=== PATIENT | male | born 1980 | race Caucasian/White ===

== ENCOUNTER 2017-03-12 07:22 | Emergency (ER) | payer BC, OTHER ==
[2017-03-12] MEDS ORDERED: Sodium Chloride 0.9% 1,000 ML ONE ×2 (07:28→08:22)
[2017-03-12] MEDS ORDERED: LORazepam 2 MG/ML Syringe ONE (07:47)
[2017-03-12 08:06] LABS: CHLORIDE,CL 103 mEq/L (98-106); SODIUM,NA 141 mEq/L (136-145)
--- NOTE | 2017-03-12 08:23 | EDM.PDOC ---
ED HPI GENERAL MEDICAL PROBLEM - General Chief Complaint: General Stated Complaint: unresponsive Time Seen by Provider: 03/12/17 07:22 Source of Information: Reports: EMS, Police History Limitations: Reports: Altered Mental Status - History of Present Illness INITIAL COMMENTS - FREE TEXT/NARRATIVE: History and physical: History of present illness: [patient is brought to the emergency room by local EMS. He was found in a vehicle parked outside of a local hotel and was unresponsive. unresponsive to painful stimuli on scene. Vyvanse 70mg bottle found in the vehicle. [address] Amor at [facility] and filled on 03/11/17. There are #24 tablets in the pill bottle at time of his presentation to ER. Patient was evaluated at [facility] on 03/03/17 for an unresponsive episode. UDS was negative. He was transferred out via flight. ] ] Review of Systems: As per history of present illness and below otherwise all systems reviewed and negative. Past medical history: As per history of present illness and as reviewed below otherwise noncontributory. Surgical history: As per history of present illness and is reviewed below other avalos noncontributory. Social history: No reported history of drug or alcohol abuse. Family history: As per history of present illness and is reviewed below otherwise noncontributory. Physical exam: General: Obtunded. well developed, well nourished male is unresponsive to painful stimuli. Gag reflex present. HEENT: Atraumatic, normocephalic. No evidence of trauma or injury. Lungs: Clear to auscultation. Heart: S1-S2, regular rate and rhythm. Abdomen: Soft, nondistended, nontender. Pelvis: Stable, nontender. Genitourinary: Deferred. Rectal: Deferred. Extremities: No track thomson noted to forearms, neck, or between fingers or toes. atraumatic. Diagnostics: [CBC, CMP, UA, UDS, PT/INR, troponin ] Impression: [altered mental status r/o polysubstance overdose] Plan: [Patient is transported to [facility] by [facility] flight team, with Dr. Gregory in ER accepting. RSI completed by flight team. Unable to provide risks and benefits of transfer to patient due to condition/ unresponsiveness. No family available. ] Definitive disposition and diagnosis is appropriate pending reevaluation and review of above. Social & Family History - Tobacco Use Smoking Status *Q: Unknown Ever Smoked ED ROS GENERAL - Review of Systems Review Of Systems: ROS reveals no pertinent complaints other than HPI. ED EXAM, GENERAL - Physical Exam Exam: See Below Course - Orders/Labs/Meds Labs: Laboratory Tests 03/12/17 03/12/17 03/12/17 Range/Units 07:45 07:45 07:45 WBC 13.3 H (5.0-10.0) 10^3/uL RBC 4.83 (4.50-6.00) 10^6/uL Hgb 14.7 (14.0-18.0) g/dL Hct 42.6 (40.0-54.0) % MCV 88.2 (82.0-94.0) fL MCH 30.4 (27.0-32.0) pg MCHC 34.5 (33.0-38.0) g/dL RDW Coeff of Jhoan 12.0 (11.0-15.0) % Plt Count 294 (150-400) 10^3/uL Neut % (Auto) 81.9 (35-85) % Lymph % (Auto) 8.4 L (10-55) % Cherry % (Auto) 8.7 (0-16) % Eos % (Auto) 0.8 (0-5) % Baso % (Auto) 0.2 (0-3) % Neut # (Auto) 10.86 H (1.80-7.00) 10^3/uL Lymph # (Auto) 1.11 (1.00-4.80) 10^3/uL Cherry # (Auto) 1.16 H (0.00-0.80) 10^3/uL Eos # (Auto) 0.11 (0.00-0.45) 10^3/uL Baso # (Auto) 0.02 10^3/uL PT (9.7-12.3) SEC INR (0.92-1.18) Sodium 141 (136-145) mEq/L Potassium 3.1 L (3.5-5.0) mEq/L Chloride 103 (98-106) mEq/L Carbon Dioxide 32 (21-32) mmol/L BUN 12 (7-18) mg/dL Creatinine 1.1 (0.7-1.3) mg/dL Est Cr Clr Drug Dosing TNP Estimated GFR (MDRD) > 60 (>=60) mL/min Glucose 112 H (75-99) mg/dL Calcium 8.4 (8.4-10.1) mg/dL Total Bilirubin 0.4 (0.0-1.0) mg/dL AST 14 L (15-37) U/L ALT 27 (12-78) U/L Alkaline Phosphatase 62 (46-116) U/L Troponin I < 0.017 (0.00-0.06) ng/mL Total Protein 6.8 (6.4-8.2) g/dL Albumin 3.5 (3.4-5.0) g/dL Urine Color (YELLOW) Urine Appearance (CLEAR) Urine pH (4.5-8.0) Ur Specific Briggs (1.003-1.020) Urine Protein (NEGATIVE) mg/dL Urine Glucose (UA) (NEGATIVE) mg/dL Urine Ketones (NEGATIVE) mg/dL Urine Occult Blood (NEGATIVE) Urine Nitrite (NEGATIVE) Urine Bilirubin (NEGATIVE) Urine Urobilinogen (0.2-1.0) EU/dL Ur Leukocyte Esterase (NEGATIVE) Urine RBC Urine Red Cell Clumps Urine WBC Urine WBC Clumps Ur Epithelial Cells Ur Squamous Epith Cells Ur Renal Epithelial Cell Miguel Biurate Crystals Calcium Oxalate Crystal Uric Acid Crystals Triple Phos Crystals Other Crystals Amorphous Sediment Urine Bacteria Hyaline Casts Granular Casts RBC Casts WBC Casts Urine Mucus Urine Other Urine Trichomonas Urine Yeast Urine Sperm Urinalysis Comment Urine Opiates Screen Positive H (NEGATIVE) Ur Oxycodone Screen Negative (NEGATIVE) Urine Methadone Screen Negative (NEGATIVE) Ur Barbiturates Screen Negative (NEGATIVE) U Tricyclic Antidepress Negative (NEGATIVE) Ur Phencyclidine Scrn Negative (NEGATIVE) Ur Amphetamine Screen Positive H (NEGATIVE) U Methamphetamines Scrn Negative (NEGATIVE) Urine MDMA Screen Negative (NEGATIVE) U Benzodiazepines Scrn Negative (NEGATIVE) Urine Cocaine Screen Negative (NEGATIVE) U Marijuana (THC) Screen Negative (NEGATIVE) 03/12/17 03/12/17 Range/Units 07:45 07:45 WBC (5.0-10.0) 10^3/uL RBC (4.50-6.00) 10^6/uL Hgb (14.0-18.0) g/dL Hct (40.0-54.0) % MCV (82.0-94.0) fL MCH (27.0-32.0) pg MCHC (33.0-38.0) g/dL RDW Coeff of Jhoan (11.0-15.0) % Plt Count (150-400) 10^3/uL Neut % (Auto) (35-85) % Lymph % (Auto) (10-55) % Cherry % (Auto) (0-16) % Eos % (Auto) (0-5) % Baso % (Auto) (0-3) % Neut # (Auto) (1.80-7.00) 10^3/uL Lymph # (Auto) (1.00-4.80) 10^3/uL Cherry # (Auto) (0.00-0.80) 10^3/uL Eos # (Auto) (0.00-0.45) 10^3/uL Baso # (Auto) 10^3/uL PT 11.0 (9.7-12.3) SEC INR 1.02 (0.92-1.18) Sodium (136-145) mEq/L Potassium (3.5-5.0) mEq/L Chloride (98-106) mEq/L Carbon Dioxide (21-32) mmol/L BUN (7-18) mg/dL Creatinine (0.7-1.3) mg/dL Est Cr Clr Drug Dosing Estimated GFR (MDRD) (>=60) mL/min Glucose (75-99) mg/dL Calcium (8.4-10.1) mg/dL Total Bilirubin (0.0-1.0) mg/dL AST (15-37) U/L ALT (12-78) U/L Alkaline Phosphatase (46-116) U/L Troponin I (0.00-0.06) ng/mL Total Protein (6.4-8.2) g/dL Albumin (3.4-5.0) g/dL Urine Color Yellow (YELLOW) Urine Appearance Clear (CLEAR) Urine pH 5.5 (4.5-8.0) Ur Specific Briggs 1.025 H (1.003-1.020) Urine Protein Negative (NEGATIVE) mg/dL Urine Glucose (UA) Negative (NEGATIVE) mg/dL Urine Ketones Trace H (NEGATIVE) mg/dL Urine Occult Blood Negative (NEGATIVE) Urine Nitrite Negative (NEGATIVE) Urine Bilirubin Negative (NEGATIVE) Urine Urobilinogen 1.0 (0.2-1.0) EU/dL Ur Leukocyte Esterase Negative (NEGATIVE) Urine RBC Cancelled Urine Red Cell Clumps Cancelled Urine WBC Cancelled Urine WBC Clumps Cancelled Ur Epithelial Cells Cancelled Ur Squamous Epith Cells Cancelled Ur Renal Epithelial Cell Cancelled Miguel Biurate Crystals Cancelled Calcium Oxalate Crystal Cancelled Uric Acid Crystals Cancelled Triple Phos Crystals Cancelled Other Crystals Cancelled Amorphous Sediment Cancelled Urine Bacteria Cancelled Hyaline Casts Cancelled Granular Casts Cancelled RBC Casts Cancelled WBC Casts Cancelled Urine Mucus Cancelled Urine Other Cancelled Urine Trichomonas Cancelled Urine Yeast Cancelled Urine Sperm Cancelled Urinalysis Comment Cancelled Urine Opiates Screen (NEGATIVE) Ur Oxycodone Screen (NEGATIVE) Urine Methadone Screen (NEGATIVE) Ur Barbiturates Screen (NEGATIVE) U Tricyclic Antidepress (NEGATIVE) Ur Phencyclidine Scrn (NEGATIVE) Ur Amphetamine Screen (NEGATIVE) U Methamphetamines Scrn (NEGATIVE) Urine MDMA Screen (NEGATIVE) U Benzodiazepines Scrn (NEGATIVE) Urine Cocaine Screen (NEGATIVE) U Marijuana (THC) Screen (NEGATIVE) Meds: Medications Discontinued Medications Generic Name Dose Route Start Last Admin Trade Name Freq PRN Reason Stop Dose Admin Sodium Chloride Confirm 03/12/17 07:28 Normal Saline Administered 03/12/17 07:29 Dose 1,000 mls @ as directed .ROUTE .STK-MED ONE Lorazepam Confirm 03/12/17 07:47 Ativan Administered 03/12/17 07:48 Dose 2 mg .ROUTE .STK-MED ONE Departure - Departure Time of Disposition: 08:52 Disposition: DC/Tfer to Acute Hospital 02 Condition: Fair Clinical Impression: Altered mental status Qualifiers: Altered mental status type: unspecified Qualified Code(s): R41.82 - Altered mental status, unspecified - Discharge Information Forms: ED Department Discharge
[2017-03-12 12:59] VITALS: BP 147/77
== END 2017-03-12 09:04 ==
LOC: CC.ED 07:22
DX: R41.82 Altered mental status, unspecified (principal)
CPT/HCPCS: 36415; 51702; 80053; 80305; 81003; 84484; 85025; 85610; 96360; 99285; J7030